=== PATIENT | female | born 1955 | race Caucasian/White ===

== ENCOUNTER → 2020-08-04 12:00 | Outpatient (CLI) | payer MEDICARE, MEDICAID, SELFPAY ==
--- NOTE | 2020-08-04 | DI.MRI.S_ITS ---
PROCEDURE: MR LUMBAR SPINE WO CON INDICATIONS: Spondylolysis, lumbar region TECHNIQUE: Noncontrast sagittal T1 spin echo and T2 fast echo, sagittal STIR, axial T1 and T2 fast spin echo through the lumbar spine. In cases with scoliosis, additional coronal T2 fast spin echo may be performed. COMPARISON: None. FINDINGS: Image quality: Excellent. Alignment and Curvature: Trace retrolisthesis of L3 on L4. Bone Marrow: No evidence of acute fracture. Multilevel degenerative endplate sclerosis and spurring. Diffuse facet arthropathy. Mild anterior wedging of the L1 vertebral body which appears chronic. Spinal Cord: Conus medullaris terminates at the L1 level. Visualized cord demonstrates normal signal and size. Paraspinous Soft Tissues: No paravertebral masses. T12-L1: Normal appearance. L1-L2: Mild canal narrowing. Partial effacement of both lateral recesses with bilaterally symmetric appearance. Moderate right and mild left foraminal narrowing. L2-L3: Normal appearance. L3-L4: Mild canal narrowing. Partial effacement of both lateral recesses with bilaterally symmetric appearance. Djrp-kh-yewqkjha right foraminal narrowing. Moderate left foraminal stenosis with slight nerve root compression. L4-L5: Minimal canal narrowing. Partial effacement of both lateral recesses with bilaterally symmetric appearance. Mild bilateral foraminal stenoses, left slightly greater than right. L5-S1: Zaoi-rz-czuolqni canal narrowing. Partial effacement of both lateral recesses with bilaterally symmetric appearance. Moderate bilateral foraminal stenosis with slight nerve root compression. IMPRESSION: Multilevel lumbar spondylosis and facet arthropathy. Mild to moderate L5-S1 canal narrowing. Diffuse bilateral foraminal stenoses as detailed above by spinal level. Dictated by: Juan Lopez M.D. on 08/04/2020 at 14:53 Approved by: Juan Lopez M.D. on 08/04/2020 at 15:01
== END ==
PROVIDERS: Referring Provider Orthopaedic Surgery Orthopaedic Surgery of the Spine; Visit Provider Orthopaedic Surgery Orthopaedic Surgery of the Spine
DX: M43.06 Spondylolysis, lumbar region (principal); M47.816 Spondylosis without myelopathy or radiculopathy, lumbar region; M48.07 Spinal stenosis, lumbosacral region
CPT/HCPCS: 72148

== ENCOUNTER → 2020-12-22 07:04 | Outpatient (CLI) | payer MEDICARE, MEDICAID, SELFPAY ==
[2020-12-22 08:22] LABS: Add Manual Diff / Slide Review NO; Basophils Absolute Auto 0 /uL (0-100); Basophils Percent Auto 0.3 % (0-2); Eosinophils Absolute Auto 200 /uL (0-450); Eosinophils Percent Auto 3.5 % (2-4); Hematocrit 39.2 % (36-46); Hemoglobin 13.1 g/dL (12.0-16.0); Lymphocytes Absolute Auto 1300 /uL (1100-4500); Lymphocytes Percent Auto 29.4 % (25-40); Mean Corpuscular HGB Conc 33.5 % (30-36); Mean Corpuscular Volume 86.5 fL (80-100); Monocytes Absolute Auto 300 /uL (0-900); Neutrophils Absolute Auto 2600 /uL (1500-7000); Neutrophils Percent Auto 59.8 % (50-75); Platelet Count 257 X10^3/uL (150-400); Red Blood Cell Count 4.53 X10^6/uL (4.0-5.2); Red Cell Distribution Width 13.3 % (11.6-14.8); White Blood Cell Count 4.4 X10^3/uL (4.5-11.0)
[2020-12-22 08:24] LABS: Hemoglobin A1C% w Est Avg Glu 5.5 % (4.0-6.0)
[2020-12-22 08:31] LABS: BUN Creatinine Ratio 37.3 (6-22); Blood Urea Nitrogen 22 mg/dL (7-17); Calcium 9.8 mg/dL (8.4-10.2); Carbon Dioxide 32 mmol/L (22-32); Chloride 105 mmol/L (98-107); Estimated Glomerular Filt Rate > 60.0 mL/min (>60); Glucose 102 mg/dL (80-110); HEMOLYSIS < 15 (0-50); Sodium 142 mmol/L (137-145)
== END ==
PROVIDERS: Referring Provider Orthopaedic Surgery Orthopaedic Surgery of the Spine; Visit Provider Orthopaedic Surgery Orthopaedic Surgery of the Spine
DX: Z01.818 Encounter for other preprocedural examination (principal); R73.9 Hyperglycemia, unspecified; Z01.812 Encounter for preprocedural laboratory examination
CPT/HCPCS: 36415; 80048; 83036; 85025; 93005

== ENCOUNTER → 2021-01-01 14:21 | Outpatient (CLI) | payer MEDICARE, MEDICAID, SELFPAY ==
--- NOTE | 2021-01-01 | DI.CT.S_ITS ---
PROCEDURE: CT LUMBAR SPINE WO CON INDICATIONS: Radiculopathy, lumbar region TECHNIQUE: Noncontrast 3 mm thick sections acquired from the T12 level to the sacrum. Sagittal and coronal reformats were constructed. For radiation dose reduction, the following was used: automated exposure control. COMPARISON: [facility], MR, MR LUMBAR SPINE WO CON, 08/04/2020, 12:35. FINDINGS: Image quality: Excellent. Bones: No visualized acute fractures or dislocations. Endplate deformities with likely Schmorl's nodes are noted along the superior endplates of T11 and T12. Inferior endplate deformity at L1 is present appearing chronic. Multilevel predominantly non bridging anterior osteophytes are present most notable at L1-L2. There is trace 1-2 mm retrolisthesis of L2 on L3, L3 on L4. Pars defect is noted at L5-S1. Severe disc space narrowing with vacuum disc is present at L1-L2, moderate L5-S1. The remainder of the lumbar spine demonstrates igcs-cl-tnbgseff disc space narrowing. Disc bulges are present at L1-2, L2-3, L3-4, L4-5 and L5-S1. Minimal to mild spinal stenosis is present at L1-L2, mild L3-4, L4-5, unchanged. There is moderate right and mild left foraminal narrowing at L1-L2, mvge-zb-owhpvfhs right and moderate left L3-4, mild bilateral L4-5, moderate bilateral L5-S1. Overall appearance has not significantly changed. Multilevel facet and ligamentum flavum hypertrophy are present. Soft tissues: No retroperitoneal masses or hematomas. Visualized aorta is normal in caliber. Large hiatal hernia is present. IMPRESSION: 1. Multilevel degenerative changes stable compared to 08/04/2020. 2. Multilevel spinal stenosis secondary to disc bulge with contributing effect of facet/ligamentum flavum arthropathy, most notable at L3-4 and L4-5. 3. Multilevel foraminal narrowing most prominent at L1-L2, L3-4 and L5-S1 predominantly secondary to facet arthropathy. Dictated by: Laila Cevallos M.D. on 01/02/2021 at 10:31 Approved by: Lalia Cevallos M.D. on 01/02/2021 at 10:41
== END ==
PROVIDERS: Referring Provider Orthopaedic Surgery Orthopaedic Surgery of the Spine; Visit Provider Orthopaedic Surgery Orthopaedic Surgery of the Spine
DX: M51.16 Intervertebral disc disorders with radiculopathy, lumbar region (principal); M51.17 Intervertebral disc disorders with radiculopathy, lumbosacral region; M48.061 Spinal stenosis, lumbar region without neurogenic claudication; M48.07 Spinal stenosis, lumbosacral region; M47.26 Other spondylosis with radiculopathy, lumbar region; M47.27 Other spondylosis with radiculopathy, lumbosacral region
CPT/HCPCS: 72131

== ENCOUNTER → 2021-01-12 11:23 | Outpatient (CLI) | payer MEDICARE, MEDICAID, SELFPAY ==
[2021-01-12 17:51] LABS: COVID-19 CEPHEID PCR (VTM/NP) Negative (Negative)
== END ==
PROVIDERS: Visit Provider Nurse Practitioner
DX: Z20.822 Contact with and (suspected) exposure to COVID-19 (principal)
CPT/HCPCS: U0003

== ENCOUNTER 2021-01-15 06:12 | Inpatient (IN) | payer MEDICARE, MEDICAID, SELFPAY ==
[2021-01-11 07:21] VITALS: BMI 33.6
[2021-01-15] VITALS (15 sets, daily range): BP systolic 108–149; BP diastolic 77–99; PULSE 62–114; RESP 10–16; TEMP 35.7–36.6; O2SAT 93–107; BMI 33.6
--- NOTE | 2021-01-15 | DI.RAD.S_ITS ---
PROCEDURE: XR LUMBAR SPINE 2-3V INDICATIONS: L4-S1 TLIF TECHNIQUE: 2 fluoroscopic images of the lumbar spine COMPARISON: None. FINDINGS: Two fluoroscopic images of the lumbar spine demonstrate posterior element fixation at L4 through S1 with discectomy. IMPRESSION: Postsurgical changes of the lower lumbar spine. Dictated by: Jesús Matos M.D. on 01/15/2021 at 12:59 Approved by: Jesús Matos M.D. on 01/15/2021 at 13:01
[2021-01-15] MEDS: LACTATED RINGERS 1,000 ML 84 ML IV ×3 (07:08→12:01)
--- NOTE | 2021-01-15 07:43 | PM.PREOP ---
Pre-operative Note COVID-19 COVID-19 status: Negative Result date/Date tested (Pos, Neg/Pending): 01/13/21 Interval Note History & Physical reviewed/Exam performed by Physician: Yes Changes to H&P: No
[2021-01-15] MEDS: CEFAZOLIN 1 GM VIAL 2 GM IV (08:14)
--- NOTE | 2021-01-15 08:25 | SUR.OPER ---
Prone on spine table, head in foam head support, padded chest and pelvic supports, gel pad at knees, lower legs supported by pillows; nipples, genitalia and toes free of pressure, arms secured on foam padded arm boards at <90 degrees abduction. Tape over blanket at thigh secured to table.
[2021-01-15] MEDS: BUPIVACAINE 0.25% (PF) 30 ML, EPINEPHrine 0.15 MG INJ (08:29)
[2021-01-15] MEDS: BUPIVACAINE LIPOSOME 266 MG/20 ML VIAL INJ (08:29)
[2021-01-15] MEDS: fentaNYL 100 MCG/2 ML INJ IV ×2 (12:49→13:08)
--- NOTE | 2021-01-15 13:03 | P.OP_ITS ---
Operative Date/Time/Diagnoses Date of procedure: 01/15/21 Time of procedure: 07:45 Pre-op diagnosis: 1. L4-5, L5-S1 spinal stenosis 2. L4-5, L5-S1 spondylosis with radiculopathy Post-op diagnosis: same Procedure & Clinicians Procedure: 1. L4-5, L5-S1 Postero-lateral and posterior interbody fusion 2. L4-5, L5-S1 interbody cage placement. 3. L4-5, L5-S1 decompressive laminectomy with bilateral facetecomies 4. L4-5, L5-S1 Posterior segmental instrumentation 5. Napoleon of bone marrow from iliac crest 6. Utilization of microsurgical technique and operating microscope 7. Robotic assisted fusion surgery Same procedure as scheduled: Yes Indications: Patient has been having chronic back pain and worsening lumbar radiculopathy. Patient failed multiple conservative management with worsening pain weakness and numbness in her lower extremity. Patient has been having difficulty performing activity of daily living. After discussing risks benefits of treatment options, patient elected proceed with surgery. Surgeon: Pati Leonard [place] Pens Assembler: Christie Platt Click Yes if Unassisted: No Anesthesia Type: General Operative Notes Closure Type: primary Specimen(s): none sent Prosthetic devices, grafts, tissues, transplants, or devices: Globus CREO MIS screws, Rise cages Applied: catheter Estimated Blood Loss (mL): 250 Blood products transfused: none Procedure in detail: Patient was seen in the preoperative area. Risks and benefits of the surgery was discussed with the patient. Informed consent was obtained from the patient and placed in the chart. Surgical site was marked. Patient was taken to the operative room. General anesthesia was administered. Prophylactic antibiotic was given to the patient less than 30 min before the incision was made. Patient was placed into a prone position on the Abhishek tab le. Patient's back was then prepped and draped in the sterile fashion. Time-out was performed at this time. After patient was prepped and draped, patient's PSIS was palpated and marked bilaterally. Small 1 cm incision was made over the PSIS for placement of the reference probes. Two trocar was placed into the PSIS 1 on each side. The reference probe was attached to the trocar of the reference apparatus. At this time the C-arm imaging was used to confirm AP and lateral of L4-L5, L5- S1 vertebrae and merged the C-arm imaging using the [employer] robotic navigation system with the CT of the lumbar spine. After successful merging was completed and confirmed, skin marker was used to amrita out the skin incision using the San[employer] robotic arm. Bilateral incision was made at this time. Pre templated trajectory was used and guided using the [employer] robotic navigation system for bilateral L4, L5, S1 pedicle screw placement. This was done by using the robotic arm to guide the high-speed bur to make a cortical entry point. Next a drill was placed also using the robotic arm and guided using the navigation system drilling partially through bilateral L4, L5 and S1 pedicles. Next L4, L5, S1 pedicle screws it was pre templated and measured was placed onto the power ups driver and inserted into the pedicles bilaterally. After all 6 screws were placed C-arm imaging was taken of both AP and lateral to confirm the placement. Excellent placement of the screws were confirmed and a matched precisely with the pre planned screw placement using the navigation system. MARs retractor was inserted using [employer] guidence. Globus MARS retractors was placed inside the incision and docked onto the L4 and L5 lamina. Using microsurgical technique and operating microscope, a L4, L5 laminectomy and L4-5, L5-S1 facetectomy was performed using a Kerrison rongeur. Patient was found have severe lateral recess and neural foramen stenosis which was fully decompressed after the laminectomy facetectomy. More than 75% of the facets were removed during the process of decompression rendering L4-5, L5-S1 level grossly unstable and required a fusion procedure at the same time. The disc space at L4-5, L5-S1 was identified, and a total diskectomy was performed at L4- 5, L5-S1 level. The endplates were decorticated using a rasp and shaver. The total diskectomy and decortication was performed at L4-5, L5-S1 level in order to to accomplish a L4-5, L5-S1 fusion. The local bone from the laminectomy and facetectomy was saved for local bone grafting. After the total diskectomy and decortication was completed, Trifecta bone graft material was combined with local bone that was harvested earlier. At this time, a separate skin is incision was made over the iliac crest. A Jamshidi needle was inserted into the iliac crest through a separate skin incision. 5 cc of bone marrow aspiration was obtained through the separate skin incision using a Jamshidi needle from the iliac crest. The bone marrow aspiration was combined with local bone and the Trifecta bone grafting material. The bone grafting material was placed into the L4-5, L5-S1 interbody space along with a expandable cage. The cage was expanded to its maximum height using the torque limiting screwdriver. The disc preparation as well as the cage insertion were also performed under navigation guidance. After the cage was placed, AP and lateral C-arm imaging was taken to confirm placement of the cage and excellent position was confirmed. Globus MARS retractor was inserted and docked onto the L4-5, L5-S1 posterola teral gutter on the right side. Using the power drill, posterior-lateral decortication was performed at L4-5, L5-S1 level until bleeding cortical bone was identified. The remaining bone grafting material was placed into the L4-5, L5-S1 posterior lateral gutter he order to accomplish posterolateral fusion at the L4-5, L5-S1 level. At this time the tulips were attached to the L4, L5, S1 pedicle screw shanks. After measuring the length of the rods, they were inserted into the tulips of the pedicle screws and locked in place using locking caps and torque limiting screwdriver bilaterally. Total 6 caps and 2 titanium rods was used in order to complete the posterior instrumentation construct. After all the hardware was placed, and confirmed with AP and lateral C-arm imaging, the wound was then irrigated with sterile normal saline and packed with Ray-Yeny gauze for 3 min to accomplish hemostasis. After the gauze was removed the deep fascia was closed with #1 Vicryl suture. The subcutaneous layer was closed with 2-0 Vicryl. The skin was closed with skin peg. Patient tolerated the procedure well. There were no complications. Neuro monitoring system was used to monitor patient's neurologic status throughout entire procedure. There was no disturbance of the neural monitoring signals throughout the case. Complications: none Post-operative Condition: stable Disposition: PACU Plan for aftercare: Admit to inpatient hospital
[2021-01-15] MEDS: OXYCODONE IR 5 MG TABLET PO (13:15)
--- NOTE | 2021-01-15 13:58 | SUR.PHASEI ---
Stable post-op, medicated with fentanyl and Percolone. Transported to room 205. Arrived stable, left with Elisabet, bed low and locked, SCDs applied.
--- NOTE | 2021-01-15 14:56 | PC.NURSE ---
Admit note: Patient admitted at 1400 to room 205, S/P TLIF/LAMI scheduled by Dr. WILLIAMSON. Dressing to mid lower back, CDI. Mild numbness to left greater toe, improved sensation from prior to sx. IVF and SCDs initiated on admission. VSS and afebrile, received on RA, sats 95%. Oriented to room, environment, and plan of care. Call light within reach. Discussed importance of mobility restrictions.
[2021-01-15] MEDS: ACETAMINOPHEN 325 MG TABLET 650 MG PO (17:02)
--- NOTE | 2021-01-15 17:08 | PT-IP ANOTE ---
Met with pt briefly who declined PT due to pain. Will follow up Friday AM.
[2021-01-15] MEDS: SENNOSIDES 8.6 MG TABLET 17.2 MG PO (20:10)
[2021-01-15] MEDS: DOCUSATE 100 MG CAPSULE PO (20:10)
[2021-01-15] MEDS: OXYCODONE IR 5 MG TABLET 10 MG PO ×2 (20:11→23:25)
[2021-01-15] MEDS: TRAZODONE 100 MG TABLET PO (20:17)
[2021-01-16] VITALS: BP 137/93; PULSE 94; RESP 18; TEMP 36.6; O2SAT 95
--- NOTE | 2021-01-16 02:35 | PC.NURSE ---
Addendum entered by Ashley Gonzales R.N. 01/16/21 03:22: Complains of headache and back pain and requests she receive Tylenol + 5mg of oxycodone; medicated as requested. Original Note: Patient is alert and oriented. Breath sounds CTA with RA sat of 95%. HRR. BP elevated at 137/93 but improved from earlier recordings. Denied nausea. BT present but has not yet passed flatus. Indwelling catheter is patent; urine is clear, pale yellow. Is able to turn herself in bed and prefers to lie on back. Was given oxycodone at shift change by evening RN and stated pain was 3/10 at time of assessment; ice pack applied. Dressing to back is intact with shadow drainage on left side of dressing. States she still has some numbness in left foot and calf but was completely numb prior to surgery. Is wearing bilateral foot SCD's. Fall risk score is moderate and bed alarm is activated.
[2021-01-16] MEDS: ACETAMINOPHEN 325 MG TABLET 650 MG PO (03:17)
[2021-01-16] MEDS: OXYCODONE IR 5 MG TABLET 10 MG PO ×2 (03:19→09:02)
[2021-01-16 03:39] VITALS: BP 133/78; PULSE 95; RESP 18; TEMP 36.6; O2SAT 95
[2021-01-16 06:53] LABS: Hematocrit 33.7 % (36-46); Hemoglobin 11.4 g/dL (12.0-16.0)
[2021-01-16 08:00] VITALS: BP 137/96; PULSE 93; RESP 18; TEMP 36.8; O2SAT 97
--- NOTE | 2021-01-16 08:06 | PM.DS.1 ---
History of Present Illness History of Present Illness Date Patient Seen: 01/16/21 Time Patient Seen: 08:06 Chief complaint: Low back pain s/p TLIF Narrative: Patient is complaining of mild low back pain this morning. She notes her longstanding history of left-sided numbness is resolving. Her nausea and vomiting is also resolved since surgery. No fevers, chills, night sweats. Overall she is feeling well, and like to be discharged home today after cleared by Physical therapy. Discharge Providers Provider Date of admission: 01/15/21 06:12 Discharge Date: 01/16/21 Primary care physician: Doctor Gin MD Consults: 01/15/21 13:58 Consult to Occupational Therapy Evaluate & Treat Comment: Physician Instructions: Evaluate and treat Consult to Physical Therapy Evaluate & Treat Comment: Physician Instructions: Evaluate and Treat Discharge provider: Christie Platt PA-C Summary Hospital Course Discharge Diagnosis: 1. L4-5, L5-S1 spinal stenosis 2. L4-5, L5-S1 spondylosis with radiculopathy Hospital Course: Date of procedure: 01/15/21 Time of procedure: 07:45 Procedure & Clinicians Procedure: 1. L4-5, L5-S1 Postero-lateral and posterior interbody fusion 2. L4-5, L5-S1 interbody cage placement. 3. L4-5, L5-S1 decompressive laminectomy with bilateral facetecomies 4. L4-5, L5-S1 Posterior segmental instrumentation 5. Hudson of bone marrow from iliac crest 6. Utilization of microsurgical technique and operating microscope 7. Robotic assisted fusion surgery Same procedure as scheduled: Yes Indications: Patient has been having chronic back pain and worsening lumbar radiculopathy. Patient failed multiple conservative management with worsening pain weakness and numbness in her lower extremity.? Patient has been having difficulty performing activity of daily living.? After discussing risks benefits of treatment options, patient elected proceed with surgery. Surgeon: Pati Leonard Optometric Technologist: Christie Platt Click Yes if Unassisted: No Anesthesia Type: General Operative Notes Closure Type: primary Specimen(s): none sent Prosthetic devices, grafts, tissues, transplants, or devices: Globus CREO MIS screws, Rise cages Applied: catheter Estimated Blood Loss (mL): 250 Blood products transfused: none Status at Discharge Cognitive/behavioral status at discharge: oriented Functional status at discharge: uses cane/walker Overall status at discharge: patient is progressing back to baseline Exam Vital Signs (past 8 hours): - 01/16/21 03:39 Temperature 97.9 F Pulse Rate 95 H Respiratory Rate 18 Blood Pressure 133/78 Pulse Oximetry 95 Oxygen Delivery Method Room Air Oxygen Flow Rate 0 Narrative Exam Narrative: Pleasant 65-year-old female, resting comfortably in bed, no acute distress. Dressing demonstrates left sided bloody drainage. No surrounding erythema, no induration. Bilateral lower extremity motor functions are grossly intact. She has slightly decreased sensation on the left lateral and medial ankle as compared to the right. Bilateral calves are soft, nontender to palpation. Objective Labs Result Diagrams: 01/16/21 06:34 Labs: Laboratory Results - last 24 hr 01/16/21 06:34 Hgb 11.4 L Hct 33.7 L PFSH Medical History Anxiety Arthritis Easy bruisability Hx of ectopic Surgical History Hx of colonoscopy with polypectomy (05/09/08) Hx of dilation and curettage Social History household members: none Smoking Status: Former smoker alcohol intake: former Discharge Assessment & Plan Assessment and Plan Plan of Treatment: Stable status post lumbar TLIF -mobilize with PT -planning on DC home today when cleared by PT Continue with current pain regimen -DC [facility] Discharge Plan Discharge Plan Patient Disposition: Home Discharge orders & Medications Prescriptions: New acetaminophen 500 mg capsule 500 mg PO Q4H MDD Max 6 tabs per day PRN (Reason: Pain, Mild (1-3)) Qty: 90 RF: 0 docusate sodium 100 mg Capsule 100 mg PO BID PRN (Reason: Constipation from the narcotic pain meds) Qty: 20 RF: 0 hydroxyzine pamoate 25 mg Capsule 25 mg PO Q4HR PRN (Reason: Spasms, nausea) Qty: 30 RF: 0 oxycodone 5 mg Tablet 5 mg PO Q3HR PRN (Reason: Pain, Severe (7-10)) Qty: 42 RF: 0 Continued venlafaxine 75 mg Tablet 75 mg PO DAILY RF: 0 trazodone 100 mg Tablet 100 mg PO BEDTIME RF: 0 Follow up/Referrals: Pati Leonard MD [Physician] - (10-14 days for postoperative visit) Doctor Greenfield MD [Primary Care Provider] - Diet/Activity/Treatments Diet: Diet as Tolerated and Regular Other treatments: Medications: -OTC Tylenol 500 mg 1 tablet every 4 hours as needed for pain/fever. Max 6 tablets per day. -Oxycodone 5 mg take 1-2 tablets every 4 hours as needed for moderate-severe pain (narcotic pain medication). -As needed medications: -Ducolax and /or MiraLax as needed for constipation from narcotic pain medications. -Pepcid AC as needed for stomach upset. Dressing/Wound care: -Keep dressing in place until postoperative follow-up office visit. -Okay to shower. Keep wound out of direct water stream. Use PressNSeal to protect from water. No soaking or submerging until all the scabs fall off (approximately 6 weeks). -Please call the office if dressing becomes wet, soiled, or saturated. Activities: -Limit bending, lifting, twisting. -Weight-bearing as tolerated. Use front wheeled walker, and progress to cane when safe. -Continue with home exercises as directed by your physical therapist. -Elevate ?toes above the nose if you have significant swelling in your lower leg. (A wedge pillow is easiest.) -Ice your incision as needed for pain/inflammation/swelling. Protect your skin with a folded pillowcase. Follow-up: -Follow-up with your surgeon or PA in the office in 10-14 days after surgery. -Follow-up with your surgeon 6 weeks postoperatively. Call the office if you have chest pain, shortness of breath, significant swelling that will not resolve with elevating, fever over 101?, significantly worsening pain. [facility]: [phone] Skin/Wound/Dressing Care Report to your healthcare provider any signs of infection, such as:: chills, fever, night sweats, unusual drainage and unusual redness Visit Report/Discharge Packet Instructions: DI for Prescription Opioid Use, DI for Transforaminal Lumbar Interbody Fusion Stand Alone Forms: Surgery Discharge Discharge Data Primary Care Provider: Doctor Gin
[2021-01-16] MEDS: DOCUSATE 100 MG CAPSULE PO (08:17)
[2021-01-16] MEDS: VENLAFAXINE 37.5 MG TABLET 75 MG PO (08:18)
[2021-01-16] MEDS: SODIUM CHLORIDE 0.9% FLUSH 10 ML IV (08:18)
--- NOTE | 2021-01-16 09:37 | OT.IP.EVAL ---
Current Diagnoses Other spondylosis with radiculopathy, lumbosacral region (01/15/21) Spinal stenosis, lumbar region without neurogenic claudication (01/15/21) Surgery Performed Operation Date: 01/15/21 07:45 Actual Procedures p L3-4 Left hemilaminectomy, L4-5, L5-S1 TLIF w/posterior instrumentation - Pati Leonard MD Past Medical History (Last Reviewed 01/16/21 @ 08:08 by Christie Platt PA-C) Anxiety Arthritis Easy bruisability Hx of colonoscopy with polypectomy (05/09/08) Hx of dilation and curettage Hx of ectopic Surgical History (Last Reviewed 01/16/21 @ 08:08 by Christie Platt PA-C) Hx of colonoscopy with polypectomy (05/09/08) Hx of dilation and curettage Occupational Therapy Inpatient Evaluation/Re-Eval M1 PT/OT-IP Prior Functional Status Start: 01/15/21 15:52 Freq: NEEDED Status: Active Protocol: Document 01/16/21 08:48 [facility] (Rec: 01/16/21 10:46 [facility] [id number]) Medical Review Prior Functional Status Communication Independent Mobility and Gait Pt states she was independent and did not use a device to walk with. Activities of Daily Living and IADL's Completely independent for all ADl and IADl needs per pt. Prior Functional Level (Other details) Pt states to live with her daughter initially for a few days before going home. Information below is regarding pt's daughter house. Pt's daughter just had a baby a couple of weeks ago. Social History Household Members none Living Arrangements House Number of Floors (Floors) One Floor Number of Stairs To Enter/Railing? 4 steps to a porch, pt does not recall if there are any rails for the steps. Pt states to call and clarify with her daughter whether there are rails or not. Home Environment Standard Height Toilet,Tub/ Shower Home Equipment Four Wheel Walker,Professor Of Poultry Science,Grab Bars In Shower M2 OT-IP Current Condition Start: 01/16/21 10:22 Freq: Status: Active Protocol: Document 01/16/21 08:48 [facility] (Rec: 01/16/21 10:46 [facility] [id number]) Occupational Therapy Current Condition Current Condition Evaluation Date 01/16/21 Treatment Diagnosis S/p L4-S1 TLIF Diagnosis Onset Date 01/15/21 Post Operative Precautions Lumbar Precautions Log Roll,No Twisting,Limit Bending,Lifting Restriction of 10 lbs,Gait Belt above Incisional Area M3 OT- IP Subjective and Pain Start: 01/16/21 10:22 Freq: Status: Active Protocol: Document 01/16/21 08:48 [facility] (Rec: 01/16/21 10:46 [facility] [id number]) OT- Subjective Occupational Therapy Visit Type Type Initial Evaluation Visit Start Time 08:48 Visit Stop Time 09:37 Total Visit Minutes 49 Occupational Therapy Visit Comments Patient Comments Pt agreed to get up for OT and not wanting to shower at this time. Encouraged pt to take pain medications as had not had any pain medications since 3AM. Patient/Caregiver Goals TO go to her daughter's home. OT Pain Assessment Pain When Pain Assessed At Rest Pain Present Pain Present Denied Pain M4 OT- IP ADL's Start: 01/16/21 10:22 Freq: Status: Active Protocol: Document 01/16/21 08:48 [facility] (Rec: 01/16/21 10:46 [facility] [id number]) OT [id number] Comments OT Self-Feeding Comments NOt at meal time. OT ADL-Grooming Comments OT Grooming Comments Pt states to do later. OT ADL-Oral Care Comments Oral Care Comments Able to educate pt regarding to hinge at her hips to spit into the sink versus spit into a cup to best follow her back precautions. OT ADL-Dressing General Eval Lower Body Dressing Ability Maximum Assistance Comments OT Dressing Comments Able to go over microbiology director and sock aid for LB dressing and able to practice with pt. Pt issued sock aid, long handled shoe horn and brush. OT ADL-Toileting Comments OT Toileting Comments Pt states bought a toilet paper aid but did not bring it to the hospital to be able to practice. Pt agreed that she will wear pads/brief initially at night. OT ADL-Bathing Comments OT Bathing Comments Suggested pt to get a shower chair and someone to assist for showering needs. M5 OT- IP IADL's Start: 01/16/21 10:22 Freq: Status: Active Protocol: Document 01/16/21 08:48 [facility] (Rec: 01/16/21 10:46 [facility] [id number]) OT-Instrumental Activities of Daily Living Home Safety Awareness Awareness of Need for Assistance at Home Decreased Awareness Home Safety Comments Pt a little groggy from pain medications and would be best to have assist and supervision for all needs at this time. M6 OT- IP Functional Cognition Start: 01/16/21 10:22 Freq: Status: Active Protocol: Document 01/16/21 08:48 [facility] (Rec: 01/16/21 10:46 [facility] [id number]) Cognitive Factors Limiting Selfcare Function Cognitive Ability Level of Alertness Alert,Drowsy Patient Orientation Name,Place,Situation Attention Span Ability Capable of Focused Attention, Capable of Sustained Attention Ability to Follow Commands Able to Follow One Step Commands with Increased Time, Able to Follow One Step Commands with Repetition Safety Awareness Decreased Recall of Precautions,Decreased Ability to Apply Precautions, Underestimates Need for Assistance Cognitive Comments Cognitive Assessment Comments Pt a bit groggy and needing reminders for back precautions and safety for ADl , bed mobility and transfer needs. OT- Vision and Hearing OT- Hearing Assessment OT- Hearing Assessment WFL OT- Vision Assessment Visual Acuity Glasses All The Time M7 OT- IP Mobility and Balance Start: 01/16/21 10:22 Freq: Status: Active Protocol: Document 01/16/21 08:48 [facility] (Rec: 01/16/21 10:46 [facility] [id number]) OT- Bed Mobility Assessment Rolling Type of Rolling Roll to Right Level of Assistance Standby Assistance Supine to Sit Supine to Sit Assist Standby Assistance Sit to Supine Sit to Supine Assist Standby Assistance Scooting Scooting to Edge of Bed Contact Guard Assistance OT-Transfer Assessment Sit to and From Stand Sit to and from Stand Contact Guard Assistance Transfers Transfer Ability Contact Guard Assistance Technique Transfer Destination Bed,Chair Transfer Technique Stand Pivot Devices Transfer Assistive Devices Gait Belt,Front Wheeled Walker Comments Mobility Comments BP supine 1454/96, sitting 172 /108 and 168/98 , standing 143 /99, and back sitting 151/92. Nursing notified of BP numbers . Therefore only transfer completed at this time. Pt states feels a bit whoozy.Educated pt to push up with her hands from the bed and reach back with her hands when lowering herself down. OT- Gait Assessment Comments Gait Ability Comments Transfer only at this time due to high BP. OT- Balance Assessment Sitting Balance and Reactions Static Sitting Balance Ability Good Dynamic Sitting Balance Ability Good Standing Balance and Reactions Static Standing Balance Ability Fair M8 OT- IP Objective Assessments Start: 01/16/21 10:22 Freq: Status: Active Protocol: Document 01/16/21 08:48 [facility] (Rec: 01/16/21 10:46 [facility] [id number]) OT-Muscle Tone Assessment Muscle Tone WNL Yes M9 OT- IP Assessment and Plan Start: 01/16/21 10:22 Freq: Status: Active Protocol: Document 01/16/21 08:48 [facility] (Rec: 01/16/21 10:46 [facility] [id number]) OT Summary Assessment and Plan Potential Rehabilitation Potential Good Analytic Complexity at Evaluation Low Summary OT Impairments Pain,Balance,Functional Cognition,Functional Mobility, Dressing,Toileting,Bathing, Toilet Transfers,Shower Transfers Progress Towards Goals Slow Progress due to Medical Issues,Slow Progress due to Cognition Assessment Summary Pt mod complexity and main barriers are steps, needing vc for safety to be able to incorporate back precautions for all ADL and mobility needs , pt having high BP. Pt to initially stay with her daughter for a few days. Pending progress, pt most likely to go home with her daughter. Goals Grooming Goal Independent Dressing Goal Independent Toileting Goal Independent Bathing Goal Standby Assistance Toilet Transfer Goal Independent Shower Transfer Goal Independent Patient/Caregiver Education Goal Demonstrate Post-Op Precautions Days to Meet Goals 5 Frequency of Treatment Frequency Of Treatment Once a Day Treatment Plan OT Treatment Plan ADL Training,Functional Cognition Training,Functional Mobility,Patient/Family Education,Discharge Planning Other Treatment Recommendations and Next shower if still here Treatment Focus Discharge Recommendations OT Discharge Recommendations Home with / Assist Available Home Equipment Needs shower chair,fww Transportation Needs at Discharge Private Vehicle
--- NOTE | 2021-01-16 10:31 | PT.IIE ---
Current Diagnoses Other spondylosis with radiculopathy, lumbosacral region (01/15/21) Spinal stenosis, lumbar region without neurogenic claudication (01/15/21) Surgery Performed Operation Date: 01/15/21 07:45 Actual Procedures p L3-4 Left hemilaminectomy, L4-5, L5-S1 TLIF w/posterior instrumentation - Pati Leonard MD Medical History (Last Reviewed 01/16/21 @ 08:08 by Christie Platt PA-C) Anxiety Arthritis Easy bruisability Hx of ectopic Physical Therapy Inpatient Evaluation/Re-Eval M1 PT/OT-IP Prior Functional Status Start: 01/15/21 15:52 Freq: NEEDED Status: Active Protocol: Document 01/16/21 10:31 [facility] (Rec: 01/16/21 11:21 AW [id number]) Medical Review Prior Functional Status Medical History Reviewed Yes Communication Independent Mobility and Gait Pt states she was independent and did not use a device to walk with. Activities of Daily Living and IADL's Completely independnet for all ADL and IADL needs per pt. She avoids showers and tends to sponge bathe. Prior Functional Level (Other details) Pt states to live with her daughter initially for a few days before going home. Information below is regarding pt's daughter house. Pt's daughter just had a a couple of weeks ago. Social History Household Members none Living Arrangements House Number of Floors (Floors) One Floor Number of Stairs To Enter/Railing? 4 steps to a porch with no railing. Pt's home is similar but has unilateral rail. 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 She will stay with her daughter for a few days after surgery and then family will check on her at her home once she returns. M2 PT-IP Current Condition Start: 01/15/21 15:52 Freq: NEEDED Status: Active Protocol: Document 01/16/21 10:31 [facility] (Rec: 01/16/21 11:21 AW [id number]) Physical Therapy Current Condition Current Condition Evaluation Date 01/16/21 Treatment Diagnosis L3-4 adrienne lami; L4-5 L5-S1 TLIF; impaired mobility and gait Onset Date 01/15/21 M3 PT-IP Subjective Start: 01/15/21 15:52 Freq: NEEDED Status: Active Protocol: Document 01/16/21 10:31 [facility] (Rec: 01/16/21 11:21 AW [id number]) Subjective Physical Therapy Visit Type Type Initial Evaluation Visit Start Time 10:02 Visit Stop Time 10:31 Total Visit Minutes 29 Number of SENIOR EMBEDDED SOFTWARE ENGINEER Visits 0 Physical Therapy Visit Comments Patient Comments Pt is sitting up in the chair. Already worked with OT. Willing to participate with PT Patient Goals Return home with family assist . Therapy Pain Assessment Pain When Pain Assessed During Mobility Pain Present Pain Present Pain Reported Location Lower Back Intensity 2 Scale Used 0/10 at rest Pain Management Techniques Re-positioning,Timing of Activity with Medications M4 PT-IP Mobility and Gait Start: 01/15/21 15:52 Freq: NEEDED Status: Active Protocol: Document 01/16/21 10:31 [facility] (Rec: 01/16/21 11:21 AW [id number]) PT-Bed Mobility Assessment Rolling Type of Rolling Log Rolling Level of Assist Standby Assistance Supine to Sit Supine to Sit Standby Assistance Sit to Supine Sit to Supine Standby Assistance Scooting Scooting to Edge of Bed Standby Assistance PT-Transfer Assessment Sit to and From Stand Sit to and from Stand Standby Assistance,Use of Upper Extremities Equipment Transfer Assistive Device Gait Belt,Front Wheeled Walker Orthotic/Prosthetic Devices or Brace: No Transfers Transfer Destination Chair,Toilet Transfer Technique ambulated with FWW Transfer Ability Level of Assist Standby Assistance Comments Mobility Comments Pt was sitting up in the chair as PT arrived. BP 159/88 HR 107. She stood from the chair SBA with FWW for support. She was able to hinge at her hips to avoid lumbar flexion. She ambulated around the unit a total of 250 feet with FWW SBA and completed stair training. On return to the room, she demonstrated log roll bed mobility SBA and then stood to walk to the toilet with FWW SBA. She managed all transfers with no more than SBA and good awareness of precautions. She walked to the sink and completed oral hygiene before transferring back to the chair . Gait Assessment Gait Gait Assistance Required: Standby Assistance Distance (Feet) 250 Able to Maintain Weight Bearing Status Yes During Gait Assistive Devices Assistive Device Gait Belt,Front Wheeled Walker Orthotic/Prosthetic Devices or Brace: No Gait Deviations General Gait Pattern Antalgic,Decreased Stride Length,Decreased Feet Clearance Factors Limiting Gait Function Factors Limiting Gait Function Decreased Sensation,Decreased Strength,Limited Range of Motion,Pain Comments Gait Comments Pt ambulated safely and with good attention to precautions, moving on block when necessary to avoid twisting. Gait without AD was assessed and PT did note increase in left ankle instability as well as mild foot slap. Gait mechanics greatly improved with FWW. Stair Climbing Assessment Evaluation Level of Assist On Stairs Standby Assistance,Contact Guard Assistance Devices Stair Climbing Assistive Devices None,Left Railing Technique/Endurance Stair Climbing Direction Ascend and Descend Stair Climbing Technique Step to Step Number of Steps Climbed 3 Query Text: Stair Climbing Set # Repetitions (reps) 2 Comments Stair Climbing Comments Pt instructed to lead with RLE ascending and LLE descending secondary to weaker left leg. First set of stairs completed with L rail SBA. Second set completed without rail CGA. Pt states her family will be able to assist her with stairs at her daughter's house. PT-Balance Assessment Sitting Balance and Reactions Static Sitting Balance Ability Normal Dynamic Sitting Balance Ability Good Standing Balance and Reactions Static Standing Balance Ability Good Dynamic Standing Balance Ability Good Device Used FWW M5 PT-IP Objective Assessments Start: 01/15/21 15:52 Freq: NEEDED Status: Active Protocol: Document 01/16/21 10:31 [facility] (Rec: 01/16/21 11:21 [id number]) Orientation Orientation/Cognition Level of Alertness Alert Orientation Name,Day of Week,Place, Situation Language Function Ability No Deficits Noted Safety Awareness Understands Safety Issues Memory Description No Deficits Noted Gross Range of Motion Lower Extremity ROM Assessment Within Functional Limits Strength Comments Strength Comments RLE grossly 5/5; Left ankle and great toe 4+/5, otherwise LLE 5/5 Sensation Assessment Sensation Gross Sensation Left LE Impaired Light Touch Impaired Sensation Description Numbness Comments Sensation Comments Dull light touch but improved since surgery. Muscle Tone Muscle Tone WNL Yes M6 PT-IP Treatment Start: 01/15/21 15:52 Freq: NEEDED Status: Active Protocol: Document 01/16/21 10:31 [facility] (Rec: 01/16/21 11:21 [id number]) Physical Therapy Treatment Education Education Provided Precautions,Weight Bearing Status,Post-Op Packet,Safety Other Treatments Other Treatment Performed Spent time instructing pt in hip hinge for improved sit to stand and ability to mange self-care tasks at the sink. Educated pt on all post op precautions. M7 PT-IP Assessment and Plan Start: 01/15/21 15:52 Freq: NEEDED Status: Active Protocol: Document 01/16/21 10:31 AW (Rec: 01/16/21 11:21 AW [id number]) PT Summary Assessment and Plan Potential Rehabilitation Potential Good Status of Condition at Evaluation Evolving Summary Impairments Pain,ROM,Strength,Sensation, Bed Mobility,Transfers,Gait Assessment Summary Calista is a 65 yo woman seen for PT evaluation on POD1 following L3-4 adrienne lami; L4-5 L5-S1 TLIF. She is independent in all regards at baseline and required no more than SBA during assessment of ambulation and transfers, CGA for stairs. Pt will have family assist for a few days before returning home to manage on her own. She understands all post-op precautions and is thoughtful about implementing them functionally. She is safe to discharge home with assist once medically cleared. Frequency of Treatment Frequency Of Treatment Discharge Precautions Lumbar Precautions Log Roll,No Twisting,Limit Bending,Lifting Restriction of 10 lbs,Gait Belt above Incisional Area Recommendations To Nursing Amount of Assist Needed Standby Assistance Discharge Recommendations PT Discharge Recommendations Home with Assistance Transportation Needs at Discharge Private Vehicle
[2021-01-16 12:00] VITALS: BP 130/83; PULSE 93; RESP 18; TEMP 36.8; O2SAT 95
--- NOTE | 2021-01-16 14:10 | CM.DPC ---
DCP/Assessment: Reviewed chart. Patient is a 65yr old female admitted to . for spine surgery. PCP is Dr. Maria T Castellanos. Primary payor is 1)Medicare 2)Medicaid. Met with patient this AM explained CM/SW role. Patient reports that she is going home today. Patient reports no anticipated d/c planning needs. P: Home today. [facility] Discharge Planning/Care Management CM Discharge Assessment Start: 01/16/21 14:05 Freq: Status: Active Protocol: Document 01/16/21 14:06 [facility] (Rec: 01/16/21 14:10 [facility] [id number]) Discharge Planning Assessment Assigned Chief Sales Officer MAUREEN Real Contact Information Petra Palacio (daughter) ph# [phone] Advance Directives? No History Provided By Patient,Medical Record Prior Living Arrangements House Household Members none Type of transporation used prior to Drives own vehicle admit Independent with ADL's Yes Is patient alert and oriented? Yes Caregiver for Another No Barriers to Discharge No Discharge Plan Home Transportation Arrangement Family Referrals Initiated None needed Review Status In Process Next Review Type Continued Stay Review Pre-Anesthesia Assessment Start: 01/11/21 07:19 Freq: Status: Complete Protocol: Document 01/11/21 07:21 [facility] (Rec: 01/11/21 07:51 [facility] [id number]) Pre-Anesthesia Assessment Preferred Name Kenzie Patient Information Reviewed Via Phone Assessment Assessment Completed With Patient H&P Completed Within 30 Days Yes Diagnostic Results BMP/CMP,CBC,EKG Comment Labs/EKG @ [facility] 12/22/20, COVID screen @ [facility] 01/12/21 Primary Care Provider Maria T Thacker Seen Specialist in Last 12 Months Yes Specialist Seen Orthopedist Primary Language [facility] Interpreter Required No Height 160.02 cm Weight 86.183 kg Body Mass Index (BMI) 33.6 Hearing Ability Normal Visual Assist Glasses Dentition Type Teeth, Natural Present,Teeth, Missing Barriers to Learning None Hx Anesthesia Reactions No Hx Family Anesthesia Reaction No Hx Malignant Hyperthermia No Hx Blood Transfusions No Anesthesia Review Requested No alcohol intake former Smoking Status Former smoker Tobacco type cigarettes how long ago did patient quit smoking Quit approx 15 years ago Substance Use Type marijuana Comment Advised not to smoke marijuana 24 hours prior Pain Present Pain Reported Musculoskeletal Symptoms Abnormal Gait,Difficulty Walking,Muscle Weakness, Numbness,Radiating Pain into Limb History of Falling (Recent or History of No ) Patient is completely paralyzed or No completely immobile Mental Status Oriented to own ability Comment Pt denies actual pain, sore Is patient on oxygen? No Does patient have AMOR/SOB No Hx Sleep Apnea No Currently Taking a Beta Mercedes No Can You Climb a Flight of Stairs Without Yes SOB Hx Chest Pain No Hx SOB No Hx Syncope or Dizziness No Anti-Coagulant Therapy No Has a Checkout Operator No Cardiac Testing No Hx Pacemaker/ICD No Pacemaker Rep Required? No Cardiac Clearance Received Not Applicable Diet Type At Home Regular dysphagia No Urinary Catheter Present No Hx Urinary Self Catheterization No Diabetes No HgbA1C 5.5 Date 12/22/20 Patient No Lactating No Hx Drug Resistant Organism No Presence of External or Internal Medical No Devices Have you had any close contact with No someone diagnosed with COVID-19? Received a COVID vaccine? Yes Received all doses? Yes Comment Plus booster Marital Status Lives With none Prior Living Arrangements House Number of Floors (Floors) One Floor Support System Child/Children Does the Patient Have Assistance After Yes: Pt will stay w/daughter Surgery [facility] [place] for care Patient Discharge Plan Description Other Comment Pt advised 1-2 night length of stay per surgeon Feels Safe in Current Environment Yes Been Physically Hurt or Threatened By a No Person in Current Environment Do you have thoughts of harming yourself None or others? Are you currently considering suicide? No Do you have a plan to hurt yourself or No Plan others? Do You Have Any Spiritual Beliefs That No May Affect Your HC Choices? Do You Have Any Cultural Practices That No May Affect Your HC Choices? Comment Spiritual Who Can We Speak to About Patient's Care Family, friends Identifying Code for Release of Patient Declines to issue Information Health Care Proxy/Next of Kin Petra (daughter) Health Care Proxy Emergency Contact Name Petra (daughter) Emergency Contact Advance Directives? No Power of Color Worker No PAC Instructions Durable medical equipment, Medications to take/avoid, Nasal antibiotic,No ETOH/ petroleum product on skin DOS, NPO,Post-op transportation, Sensory aids,Sturdy shoes/ comfortable clothes,Do not bring valuables and remove jewelry
--- NOTE | 2021-01-16 14:47 | PC.NURSE ---
A&Ox4. VSS, ran hypertensive in the 150's/80's this morning while working with PT and OT. Current BP is 130/80. All other vitals stable. Chris pain but rivera snot some discomfort when moving. Was given 5 mg of PRN oxycodone for working with PT as her pain was starting to increase to 3/10 with movement. Okayed by PT for discharge. Family coming around 1530 to take her home. Urinated well, passing gas. No BM yet. Call light in reach, bed low.
[2021-01-16 15:25] VITALS: BP 140/99; PULSE 96; RESP 17; TEMP 36.8; O2SAT 97
--- NOTE | 2021-01-16 16:44 | PC.NURSE ---
Patient discharged home at 16:40 transported downstairs by CUSTODIAL LABORER via wheelchair. Discharge orders reviewed with patient, all questions answered. All items removed from room. Dressing CDI at time of discharge.
== END 2021-01-16 16:40 | disposition home or self-care (01) | DRG 455 ==
PROVIDERS: Admitting Provider Orthopaedic Surgery Orthopaedic Surgery of the Spine; Referring Provider Orthopaedic Surgery Orthopaedic Surgery of the Spine; Visit Provider Orthopaedic Surgery Orthopaedic Surgery of the Spine
PROC: 0SG00AJ Fusion of Lumbar Vertebral Joint with Interbody Fusion Device, Posterior Approach, Anterior Column, Open Approach (ICD-10-PCS; principal; 2021-01-15 07:45)
DX: M47.26 Other spondylosis with radiculopathy, lumbar region (principal); M48.061 Spinal stenosis, lumbar region without neurogenic claudication; M47.27 Other spondylosis with radiculopathy, lumbosacral region; M48.07 Spinal stenosis, lumbosacral region; F41.9 Anxiety disorder, unspecified; Z87.891 Personal history of nicotine dependence; Z20.822 Contact with and (suspected) exposure to COVID-19
CPT/HCPCS: 36415; 72100; 76000; 85014; 85018; 97116; 97161; 97166; 97535; C1776; C9803; U0003; C9290; J0171; J0690; J1100; J2405; J2704; J3010